=== PATIENT | female | born 1975 | race African-American/Black ===

== ENCOUNTER 2017-05-01 12:21 | Emergency (ER) | payer SELFPAY | END 2017-05-01 13:10 | disposition home or self-care (01) | LOC: EDSEX 12:21 → ERS 12:21 | DX: T19.2XXA Foreign body in vulva and vagina, initial encounter (principal); I10 Essential (primary) hypertension | CPT/HCPCS: 99283 ==

== ENCOUNTER 2017-08-06 06:11 | Emergency (ER) | payer SELFPAY ==
[2017-08-06 08:35] LABS: Bilirubin Negative (Negative); Blood, Urine Negative (Negative); Clarity CLEAR (Clear); Glucose, Urine (Dipstick) Negative (Negative); Leukocyte Negative (Negative); Nitrite Negative (Negative); Protein, Urine (Dipstick) Negative (Neg-Trace); Specific Gravity, Urine 1.022 (1.002-1.036)
[2017-08-06 08:42] LABS: Pregnancy Test - Urine (BHCG) Negative (Negative); Pregu Control Background? CLEAR/WHITE (CLR/WHITE); Pregu Control Bar Appear? YES (CONTROL BAR); Specific Gravity 1.022 (1.002-1.036)
[2017-08-07 22:59] LABS: Chlamydia by PCR Not Detected (NotDetected); GC by PCR Not Detected (NotDetected)
== END 2017-08-06 09:26 | disposition home or self-care (01) ==
LOC: ERS 06:11
DX: T19.2XXA Foreign body in vulva and vagina, initial encounter (principal); E78.5 Hyperlipidemia, unspecified; I10 Essential (primary) hypertension; Z79.899 Other long term (current) drug therapy; W45.8XXA Other foreign body or object entering through skin, initial encounter
CPT/HCPCS: 81003; 81025; 87070; 87077; 87086; 87480; 87491; 87510; 87591; 87660; 99283

== ENCOUNTER 2017-09-08 15:29 | Emergency (ER) | payer SELFPAY ==
[2017-09-08 16:09] LABS: #Basophils 0.1 thou/uL (0.0-0.2); #Eosinphils 0.2 thou/uL (0.0-0.7); #Lymphocytes 2.7 thou/uL (1.20-3.40); #Monocytes 0.6 thou/uL (0.11-0.59); %Basophils 0.7 % (0.0-1.0); %Eosinophils 2.2 % (0.0-10.0); %Lymphocytes 36.1 % (21.0-51.0); %Monocytes 7.9 % (0.0-10.0); %Neutrophils 53.2 % (42.0-75.0); Hemoglobin 12.2 g/dL (12.0-16.0); Mean Corpuscular HGB CONC 31.9 g/dL (32.0-36.0); Mean Corpuscular Hemoglobin 31.1 pg (27.0-31.0); Mean Corpuscular Volume 97.6 fl (81.0-99.0); Mean Platelet Volume 7.8 fL (7.4-10.4); Platelet Count 357 thou/uL (130-400); RBC Distribution Width 12.4 % (11.5-14.5); White Blood Cell (WBC) Count 7.5 thou/uL (4.8-10.8)
[2017-09-08] MEDS ORDERED: Azithromycin 250 MG TAB ONE (16:19)
[2017-09-08] MEDS ORDERED: cefTRIAXone\\ROCEPHIN 250 MG VIAL ONE (16:19)
[2017-09-09 21:58] LABS: Chlamydia by PCR Not Detected (NotDetected); GC by PCR Not Detected (NotDetected)
== END 2017-09-08 17:39 | disposition home or self-care (01) ==
LOC: ERS 15:29
DX: T19.2XXA Foreign body in vulva and vagina, initial encounter (principal); N72 Inflammatory disease of cervix uteri; E78.5 Hyperlipidemia, unspecified; F32.9 Major depressive disorder, single episode, unspecified; I10 Essential (primary) hypertension; Z79.899 Other long term (current) drug therapy
CPT/HCPCS: 36415; 85025; 87491; 87591; 96372; J0696

== ENCOUNTER 2017-09-23 14:20 | Emergency (ER) | payer SELFPAY ==
[2017-09-23 15:47] LABS: #Basophils 0.1 thou/uL (0.0-0.2); #Eosinphils 0.2 thou/uL (0.0-0.7); #Monocytes 0.5 thou/uL (0.11-0.59); #Neutrophils 8.2 thou/uL (1.40-6.50); %Basophils 0.7 % (0.0-1.0); %Eosinophils 1.5 % (0.0-10.0); %Lymphocytes 18.3 % (21.0-51.0); %Monocytes 4.6 % (0.0-10.0); Hemoglobin 12.3 g/dL (12.0-16.0); Mean Corpuscular Hemoglobin 31.1 pg (27.0-31.0); Mean Corpuscular Volume 97.3 fl (81.0-99.0); Platelet Count 263 thou/uL (130-400); RBC Distribution Width 12.9 % (11.5-14.5); Red Blood Cell (RBC) Count 3.95 mill/uL (4.20-5.40); White Blood Cell (WBC) Count 10.9 thou/uL (4.8-10.8)
[2017-09-23 16:12] LABS: ALT (SGPT) 8 U/L (8-55); AST (SGOT) 16 U/L (5-34); Albumin 3.8 g/dL (3.5-5.0); Alkaline Phosphatase 86 U/L (40-150); Anion Gap 12 mmol/L (10-20); BUN (Urea Nitrogen) 6 mg/dL (7.0-18.7); Bilirubin, Total 0.3 mg/dL (0.2-1.2); Calc. Creatinine Clearance 0 mL/min (70-130); Calcium 9.3 mg/dL (7.8-10.44); Carbon Dioxide 27 mmol/L (22-29); Chloride 100 mmol/L (98-107); Estimated GFR-MDRD 89; Glucose 107 mg/dL (70-105); Potassium 3.3 mmol/L (3.5-5.1); Protein, Total 7.8 g/dL (6.0-8.3); Sodium 136 mmol/L (136-145)
[2017-09-23] MEDS ORDERED: Naproxen 500 MG TAB ONE (18:02)
== END 2017-09-23 16:30 | disposition left against medical advice (07) ==
LOC: ERS 14:20
DX: Z53.21 Procedure and treatment not carried out due to patient leaving prior to being seen by health care provider (principal)
CPT/HCPCS: 36415; 80053; 83605; 85025

== ENCOUNTER 2017-09-23 17:18 | Emergency (ER) | payer SELFPAY | END 2017-09-23 18:05 | disposition home or self-care (01) | LOC: ERS 17:18 | DX: K43.9 Ventral hernia without obstruction or gangrene (principal); E78.5 Hyperlipidemia, unspecified; I10 Essential (primary) hypertension; F31.9 Bipolar disorder, unspecified; F20.0 Paranoid schizophrenia | CPT/HCPCS: 99283 ==

== ENCOUNTER 2019-04-08 14:23 | Emergency (ER) | payer SELFPAY ==
[2019-04-08 15:52] LABS: Bacteria/HPF 1+ HPF (None Seen); Bilirubin Negative (Negative); Blood, Urine Negative (Negative); Clarity Turbid (Clear); Glucose, Urine (Dipstick) Normal (Negative); Leukocyte 500 Leu/uL (Negative); Nitrite Negative (Negative); Pregnancy Test - Urine (BHCG) Negative (Negative); Protein, Urine (Dipstick) 70 mg/dL (Neg-Trace); Urobilinogen 3 mg/dL (Less than 2)
[2019-04-08 15:53] LABS: Pregu Control Background? CLEAR/WHITE (CLR/WHITE); Pregu Control Bar Appear? YES (CONTROL BAR); Specific Gravity 1.034 (1.002-1.036)
[2019-04-08 16:00] LABS: RBC/HPF 0-3 HPF (0-3)
[2019-04-08] MEDS ORDERED: Lidocaine 1% PF 5 ML VIAL ONE (16:55)
[2019-04-08] MEDS ORDERED: cefTRIAXone\\ROCEPHIN 250 MG VIAL ONE (16:55)
[2019-04-08] MEDS ORDERED: Azithromycin 250 MG TAB ONE (16:55)
[2019-04-10 00:38] LABS: Chlamydia by PCR Not Detected (NotDetected); GC by PCR Not Detected (NotDetected)
== END 2019-04-08 17:25 | disposition home or self-care (01) ==
LOC: ERS 14:23
DX: N39.0 Urinary tract infection, site not specified (principal); E78.5 Hyperlipidemia, unspecified; E78.00 Pure hypercholesterolemia, unspecified; I10 Essential (primary) hypertension; F31.9 Bipolar disorder, unspecified; F20.0 Paranoid schizophrenia; Z79.899 Other long term (current) drug therapy
CPT/HCPCS: 81003; 81015; 81025; 87480; 87491; 87510; 87591; 87660; 96372; 99283; J0696; J2001

== ENCOUNTER 2019-05-04 18:19 | Emergency (ER) | payer SELFPAY | END 2019-05-04 19:11 | disposition left against medical advice (07) | LOC: ERS 18:19 | DX: Z53.21 Procedure and treatment not carried out due to patient leaving prior to being seen by health care provider (principal) ==

== ENCOUNTER 2019-05-11 12:27 | Emergency (ER) | payer SELFPAY ==
[2019-05-11 14:18] LABS: Bilirubin Negative (Negative); Blood, Urine Negative (Negative); Clarity Clear (Clear); Glucose, Urine (Dipstick) Normal (Negative); Leukocyte Negative Leu/uL (Negative); Nitrite Negative (Negative); Protein, Urine (Dipstick) Negative (Neg-Trace); Urobilinogen Normal mg/dL (Less than 2)
[2019-05-11 14:31] LABS: Hemoglobin 13.1 g/dL (12.0-16.0); Mean Corpuscular HGB CONC 31.4 g/dL (32.0-36.0); Mean Corpuscular Hemoglobin 30.6 pg (27.0-31.0); Mean Corpuscular Volume 97.5 fL (78.0-98.0); Mean Platelet Volume 8.3 fL (7.4-10.4); Platelet Count 286 thou/uL (130-400); RBC Distribution Width 14.5 % (11.5-14.5); Red Blood Cell (RBC) Count 4.27 mill/uL (4.20-5.40); White Blood Cell (WBC) Count 14.4 thou/uL (4.8-10.8)
[2019-05-11 14:46] LABS: BHCG - Serum Negative (NEGATIVE); Pregs Control Background? CLEAR/WHITE (CLR/WHITE); Pregs Control Bar Appear? YES (CONTROL BAR)
[2019-05-11] MEDS ORDERED: Iopamidol 370 76% 100 ML VIAL ONE (14:49)
[2019-05-11 14:54] LABS: Band 12 % (5-11); Hypochromia SLIGHT = 6-15 cells (100X) (0-5/hpf); Lymphocytes 6 % (21-51); MDiff Complete? YES; Monocytes 1 % (0-10); Neutrophil 77 % (42-75); Platelet Morphology Comment Appears Adequate; Polychromasia SLIGHT = 2-3 cells (100X) (0-2/hpf); Reactive Lymphocytes 4 % (0-10)
[2019-05-11 14:55] LABS: ALT (SGPT) 16 U/L (8-55); AST (SGOT) 27 U/L (5-34); Albumin 3.7 g/dL (3.5-5.0); Alkaline Phosphatase 81 U/L (40-110); Anion Gap 9 mmol/L (10-20); BUN (Urea Nitrogen) 12 mg/dL (7.0-18.7); Bilirubin, Total 0.3 mg/dL (0.2-1.2); Calc. Creatinine Clearance 0 mL/min (70-130); Calcium 9.1 mg/dL (7.8-10.44); Carbon Dioxide 31 mmol/L (22-29); Chloride 103 mmol/L (98-107); Estimated GFR-MDRD 81; Globulin 3.6 g/dL (2.4-3.5); Glucose 94 mg/dL (70-105); Lipase 59 U/L (8-78); Potassium 3.3 mmol/L (3.5-5.1); Protein, Total 7.3 g/dL (6.0-8.3); Sodium 140 mmol/L (136-145)
--- NOTE | 2019-05-11 16:00 | CT ---
CT ABDOMEN AND PELVIS WITH IV CONTRAST 05/11/2019 CLINICAL INFORMATION: Abdominal pain. COMPARISON: None. Technique: Multiple contiguous axial CT images are obtained through the abdomen and pelvis with IV contrast. Cor onal reformatted images are provided. FINDINGS: Lower Chest: There is minimal atelectasis present at each lung base. Vessels: Abdominal aorta is normal in caliber without evidence of an aortic dissection. Abdomen: Portal vein:Patent Gallbladder: Decompressed. Liver: Few tiny subcentimeter too small to characterize hypodense lesions are seen in the right hepat ic lobe. Liver otherwise demonstrates a normal CT appearance. Spleen: within normal limits. Pancreas: within normal limits. Adrenals: within normal limits. Kidneys: within normal limits. Bowel: Small amount of fluid and retained fecal material seen throughout the colon. Portion of the tr ansverse colon extends into a right paraumbilical hernia without evidence of a bowel obstruction. Hernia defect measures approximately 2.5 cm. Loops of small bowel are normal in caliber. Appendix: The appendix is visualized and normal in caliber. Peritoneum: No ascites or free air; no fluid collection. Mesentery and Retroperitoneum: No enlarged mesenteric or retroperitoneal lymph nodes. Abdominal Wall: Right paraumbilical hernia as described above Pelvis: Reproductive Organs: A 2.3 cm hypodense cystic structure is seen in the cervix which may represent a large nabothian cyst. There is diminished attenuation in the endometrial canal which may be related to the stage of the patient's menstrual cycle. There are several subcentimeter hypodense lesions in t he right adnexa with a larger 4.7 cm hypodense cystic structure in the right adnexal region which does demonstrate fluid attenuation probably representing a right ovarian cyst with adjacent right ova aquilino follicles. Pelvis within normal limits. Bladder: within normal limits. Bones: Degenerative changes in the thoracic and lumbar spine. There is trace retrolisthesis of L5 on S1. IMPRESSION: 1. Right paraumbilical hernia containing a loop of the transverse colon, but there is no evidence of a bowel obstruction. There is fluid and small amount of retained fecal material seen throughout the colon. 2. Tiny subcentimeter too small to characterize hypodense lesions right hepatic lobe. 3. Probable right ovarian cyst measuring 4.7 cm. 4. Cystic lesion in the cervix probably nabothian cyst. Diminished attenuation is seen in the endomet rial canal likely related to stage of the patient's menstrual cycle.
== END 2019-05-11 17:25 | disposition home or self-care (01) ==
LOC: ERS 12:27
DX: R10.9 Unspecified abdominal pain (principal); E78.5 Hyperlipidemia, unspecified; E78.00 Pure hypercholesterolemia, unspecified; I10 Essential (primary) hypertension; F32.9 Major depressive disorder, single episode, unspecified; Z79.899 Other long term (current) drug therapy
CPT/HCPCS: 36415; 74177; 80053; 81003; 83690; 84703; 85025; 96360; Q9967

== ENCOUNTER 2019-06-21 15:23 | Inpatient (IN) | payer SELFPAY ==
[~2019-06-21 15:23] MED LIST: Iopamidol 370 76% 100 ML VIAL ONE
[2019-06-21] MEDS ORDERED: Pantoprazole 40 MG VIAL ONE (15:27)
[2019-06-21] MEDS ORDERED: Ondansetron PF 4 MG/2 ML Vial ONE (15:27)
[2019-06-21 16:04] LABS: #Eosinphils 0.1 thou/uL (0.0-0.7); #Lymphocytes 2.4 thou/uL (1.20-3.40); #Monocytes 0.5 thou/uL (0.11-0.59); #Neutrophils 8.9 thou/uL (1.40-6.50); %Basophils 0.1 % (0.0-1.0); %Eosinophils 0.5 % (0.0-10.0); %Lymphocytes 20.2 % (21.0-51.0); %Monocytes 3.8 % (0.0-10.0); %Neutrophils 75.3 % (42.0-75.0); Hemoglobin 7.8 g/dL (12.0-16.0); Mean Corpuscular Hemoglobin 33.1 pg (27.0-31.0); Mean Platelet Volume 8.5 fL (7.4-10.4); Platelet Count 227 thou/uL (130-400); RBC Distribution Width 12.5 % (11.5-14.5); Red Blood Cell (RBC) Count 2.34 mill/uL (4.20-5.40); White Blood Cell (WBC) Count 11.9 thou/uL (4.8-10.8)
[2019-06-21 16:15] LABS: BHCG - Serum Negative (NEGATIVE); Pregs Control Background? CLEAR/WHITE (CLR/WHITE); Pregs Control Bar Appear? YES (CONTROL BAR)
[2019-06-21 16:16] LABS: PTT 23.1 SEC (22.9-36.1); Prothrombin Time 12.7 SEC (12.0-14.7)
[2019-06-21 16:25] LABS: ALT (SGPT) 11 U/L (8-55); AST (SGOT) 16 U/L (5-34); Albumin 2.6 g/dL (3.5-5.0); Alkaline Phosphatase 47 U/L (40-110); Anion Gap 9 mmol/L (10-20); BUN (Urea Nitrogen) 46 mg/dL (7.0-18.7); Bilirubin, Total 0.3 mg/dL (0.2-1.2); Calc. Creatinine Clearance 0 mL/min (70-130); Calcium 7.7 mg/dL (7.8-10.44); Carbon Dioxide 26 mmol/L (22-29); Chloride 106 mmol/L (98-107); Estimated GFR-MDRD 67; Globulin 2.1 g/dL (2.4-3.5); Glucose 164 mg/dL (70-105); Potassium 3.2 mmol/L (3.5-5.1); Protein, Total 4.7 g/dL (6.0-8.3); Sodium 138 mmol/L (136-145)
--- NOTE | 2019-06-21 16:45 | ULT ---
RIGHT LOWER EXTREMITY DOPPLER VENOUS ULTRASOUND PROVIDED CLINICAL HISTORY: Right lower extremity edema TECHNIQUE: Grayscale and color Doppler sonography with spectral analysis was performed of the right common femor al, femoral, popliteal, posterior tibial, greater saphenous and profunda femoral veins. FINDINGS: There is normal compression, flow and augmentation seen within the deep venous structures o f the right lower extremity. IMPRESSION: No sonographic evidence for right lower extremity deep venous thrombosis.
--- NOTE | 2019-06-21 18:02 | CT ---
CT HEAD WITHOUT CONTRAST: Indications: Seizure. Comparison: None. FINDINGS: Ventricles have normal size and position. There is no evidence of intracranial mass or hemorrhage. No evidence of acute infarct. Sinuses and mastoids appear clear. IMPRESSION: No acute abnormality. POS: [facility]
--- NOTE | 2019-06-21 18:09 | CT ---
CT ABDOMEN AND PELVIS WITH IV CONTRAST: Indications: Abdominal pain, vomiting blood. Comparison: 05-11-2019 FINDINGS: Lung bases clear. Liver, spleen, and pancreas unremarkable. The tiny hepatic cyst described previously is again seen. Stomach and duodenum unremarkable. Small bowel loops normal caliber. There is an interior abdominal wall hernia to the right of the umbilicus. Transverse colon herniates through this defect into the indwelling hernia sac within the subcutaneous tissues as described previ ously. There is no evidence of bowel obstruction. Scattered stool and gas seen throughout the colon. Appendix appears normal. Aorta normal caliber. No adenopathy. Images through the pelvis again shows a right adnexal cyst, similar to the prior exam. This is consis tent with a right ovarian cyst which measures approximately 4 cm. The uterus otherwise unremarkable and stable. A Nabothian cyst described previously in the cervix is no longer apparent. The adrenal glands, kidneys and urinary tract appear unremarkable. IMPRESSION: 1. Anterior abdominal wall hernia again noted with the transverse colon herniated through the abdomin al wall defect into a hernia sac within subcutaneous tissues which measures approximately 8 c width. No evidence of bowel obstruction and no significant change from the recent CT. 2. Right ovarian cyst is again noted. 3. Otherwise no acute intraabdominal process or interval change from the recent exam. POS: [facility]
[2019-06-21] MEDS ORDERED: Fosphenytoin Sodium 1,500 MG in Sodium Chloride 0.9% 50 ML IVPB SCH (18:15)
[2019-06-21 18:17] LABS: Bacteria/HPF None Seen HPF (None Seen); Bilirubin Negative (Negative); Blood, Urine 2+ (Negative); Clarity Clear (Clear); Glucose, Urine (Dipstick) Normal (Negative); Leukocyte Negative Leu/uL (Negative); Nitrite Negative (Negative); Protein, Urine (Dipstick) Negative (Neg-Trace); RBC/HPF 0-3 HPF (0-3); Urobilinogen Normal mg/dL (Less than 2); WBC/HPF 0-3 HPF (0-3)
[2019-06-21 18:28] LABS: Amphetamine Not Detected (NotDetected); Barbiturates Screen Not Detected (NotDetected); Benzodiazepine Screen Not Detected (NotDetected); Cocaine Metabolite Screen Detected (NotDetected); Medtox Control Line Valid? VALID (VALID); Medtox Reader # READER 4; Methadone Not Detected (NotDetected); Methamphetamine Not Detected (NotDetected); Opiate Screen Not Detected (NotDetected); Oxycodone Screen Not Detected (NotDetected); Phencyclidine (PCP) Not Detected (NotDetected); THC/Cannabinoid Screen Not Detected (NotDetected); Tricyclic Screen Not Detected (NotDetected)
[2019-06-21] MEDS ORDERED: Pantoprazole 80 MG in Sodium Chloride 0.9% 100 ML IVP SCH (18:45)
[2019-06-21] MEDS ORDERED: Acetaminophen 325 MG TAB PO PRN ×2 (19:00→20:18)
[2019-06-21] MEDS ORDERED: Ondansetron ODT 4 MG TAB SL PRN (19:00)
[2019-06-21] MEDS ORDERED: Ondansetron PF 4 MG/2 ML Vial IVP PRN ×2 (19:00→20:18)
[2019-06-21] MEDS ORDERED: Dextrose 5% in Water 1,000 ML IV PRN (20:18)
[2019-06-21] MEDS ORDERED: Dextrose 50% Abboject 50 ML SYRINGE SLOW IVP PRN (20:18)
[2019-06-21] MEDS ORDERED: Guaifenesin DM 100-10/5 ML UDCUP PO PRN (20:18)
[2019-06-21] MEDS ORDERED: Sodium Chloride 0.9% 1,000 ML IV SCH (20:18)
[2019-06-21] MEDS ORDERED: HumaLOG 300 UNITS/3 ML VIAL SC PRN (20:18)
[2019-06-21 20:55] LABS: Hemoglobin 8.7 g/dL (12.0-16.0)
[2019-06-21 21:02] LABS: Hemoglobin A1c 4.9 % (4.0-6.0)
--- NOTE | 2019-06-21 21:05 | HP ---
REASON FOR ADMISSION: Acute blood loss anemia. Seizure x1 episode, likely cocaine intoxication, hematemesis. Fever of 99 with nausea, vomiting, and diarrhea, likely food poisoning. HISTORY OF PRESENTING ILLNESS: The patient gives history of feeling sick from last 2 days. She states she vomited yesterday at least 2 to 3 times and again this morning, she had one episode of watery diarrhea. Yesterday in fact she was incontinent x1. She passed again 2 more loose stools this morning. The patient says she and a friend of hers, Ms. Nguyễn also ate the same pickled pork and both of them were sick with nausea, vomiting, and diarrhea per patient. She has taken a flu shot for this year. Has no complaints of chest pain or palpitation. She had one episode of vomiting blood around 20 mL or so when EMS arrived. She does not recall having black stools. No complaints of cough or expectoration. She has chills at present. No complaints of urinary frequency or urgency. PAST MEDICAL AND SURGICAL HISTORY: Dyslipidemia, hypertension, x2, history of depression; schizophrenia, not on any medication. CURRENT MEDICATIONS: 1. Hydrochlorothiazide 12.5 mg daily. 2. Norvasc 5 mg daily. 3. Aspirin 81 mg daily. ALLERGIES: NO KNOWN DRUG ALLERGIES. PERSONAL HISTORY: Does not smoke or abuse alcohol. She denies substance use. FAMILY HISTORY: Father is legally blind, but is living. He also has history of hypertension and diabetes. Mother is in [facility]; she has history of coronary artery disease, diabetes, and hypertension. REVIEW OF SYSTEMS: CONSTITUTIONAL: Negative for weight loss or gain, ability to conduct usual activities. SKIN: Negative for rash, itching. EYES: Negative for double vision, pain. ENT/MOUTH: Negative for nose bleeding, neck stiffness, pain, tenderness. CARDIOVASCULAR: Negative for palpitations, dyspnea on exertion, orthopnea. RESPIRATORY: Negative for shortness of breath, wheezing, cough, hemoptysis, fever or night sweats. GASTROINTESTINAL: Negative for poor appetite, abdominal pain, heartburn, nausea , vomiting, constipation, or diarrhea. GENITOURINARY: Negative for urgency, frequency, dysuria, nocturia. MUSCULOSKELETAL: Negative for pain, swelling. NEUROLOGIC/PSYCHIATRIC: Negative for anxiety, depression. ALLERGY/IMMUNOLOGIC: Negative for skin rash, bleeding tendency. Otherwise, negative except as stated per HPI. CODE STATUS: Full. Power of employment law attorney is her father. PHYSICAL EXAMINATION: GENERAL: The patient is a 44-year-old female who is currently in mild distress from chills. VITAL SIGNS: Blood pressure 103/66, pulse 106 per minute, respiratory rate 20 per minute, temperature 99.1 degrees Fahrenheit, saturating 100% on room air. NECK: Supple. No elevated JVD. HEENT: Eyes; extraocular muscles intact. Pupils reacting to light. Oral cavity, mucous membranes are dry. No exudates or congestion. CARDIOVASCULAR: S1 and S2 heard, regular rhythm. RESPIRATORY: Air entry 1+ bilateral. No rales or rhonchi. ABDOMEN: Soft. Bowel sounds heard. Has a paraumbilical hernia. No rigidity or guarding. EXTREMITIES: No peripheral edema or calf tenderness. VASCULAR: Peripheral pulses 1+ bilateral. No ischemic ulcerations or gangrene. CENTRAL NERVOUS SYSTEM: No gross focal deficits noted. The patient is alert, awake, and oriented well now. PSYCHIATRIC: The patient's mood is euthymic. No obvious hallucinations or delusions. LABORATORY DATA: CT of the abdomen and pelvis with IV contrast done shows anterior abdominal wall hernia with transverse colon herniated through the defect into a hernia within subcutaneous tissues which measures 8 cm width. No bowel obstruction seen. Right ovarian cyst is seen. CT brain without contrast done showed no acute intracranial abnormality. Right lower extremity venous Doppler done showed no evidence of DVT. Urine drug screen is positive for cocaine metabolites. Serum test is negative. Prolactin is 64. Albumin 2.6. Lipase is 44. BUN 46, creatinine 1.0, serum bicarb 26, serum glucose 164, lactic acid 1.9. Liver enzymes within normal limits. Albumin is 2.6. PT/INR, PTT within normal limits. Serum potassium is 3.2. White count of 11, H and H 7.8 and 23, platelet count 227 with 75% neutrophils, MCV is 100. EKG done shows sinus tach at 103 beats per minute. There are signs of LVH seen. CLINICAL IMPRESSION AND PLAN: The patient will be admitted to Stroke Unit for acute blood loss anemia. The patient had H and H of 13 and 41 in the month of May. Likely the patient has had gastrointestinal bleed. Urine drug screen is also positive for cocaine. She had one episode of seizure, it is unclear the exact variety of seizures she had. Likely this is from substance use and component of metabolic issues. She also might have had a food poisoning with a friend suffering from similar issue after eating pickled pork. Dr. Vergara has been consulted for Gastroenterology from ER. She has been kept n.p.o. She is on Protonix drip. She will be on normal saline at 100 mL per hour. We will continue her on Norvasc as before. The patient has received a dose of fosphenytoin in the ER. She has no prior history of seizure. This episode of seizure likely is due to metabolic causes and we will hold off on any antiepileptic. We will consult Neurology, Dr. Louis who is concert promoter. H and H q.6 hourly x4. We will also obtain a metabolic panel in the morning. 2 units of packed cell has been ordered by Dr. Cheung, ER physician. We will follow up on her lab work. Job ID: [id number] [id number]
[2019-06-21 21:14] LABS: Iron 250 ug/dL (50-170); Iron Binding Capacity, Total 264 mcg/dL (265-497)
[2019-06-21 21:41] LABS: Ferritin 17.49 ng/mL (10-291)
[2019-06-21 22:53] VITALS: BMI 42.0
--- NOTE | 2019-06-22 00:38 | CON ---
DATE OF CONSULTATION: 06/21/2019 REASON FOR CONSULTATION: Hematemesis, melena. CONSULTING PROVIDER: Tre Cheung DO HISTORY OF PRESENT ILLNESS: The patient is a 44-year-old female with past medical history of hypertension, hyperlipidemia, and GERD, presenting with complaints of hematemesis and darker-colored stools. She states that she was in her usual state of health until yesterday evening. When after dinner, she experienced increased diaphoresis, dyspepsia, nausea, and vomiting. This was also associated with increased periumbilical abdominal pain characterized as a cramping/sharp type sensation, was nonradiating, intermittent, occurring for 30 to 60 minutes at a time and reaching a severity of 7/10 to 8/10. The pain was worse with increased physical activity only and better with vomiting for a while but that would soon return after approximately 30 to 60 minutes. With the onset of this pain, she also had multiple episodes of nausea and vomiting with vomiting of dark black material x2. However, with being evaluated by [facility] earlier today, she did actually have gross hematemesis of bright red blood. During the same time within the last 12 hours, she also endorses increased diarrhea, having approximately 3 to 4 liquid black bowel movements during that time. Upon further questioning the patient, she does endorse increased dizziness, diarrhea/melena, nausea, vomiting, subjective fevers, and chills. Currently, she denies any dysphagia, odynophagia, weight loss, cirrhosis, or prior episodes of GI bleeding. Of note, the patient has been taking aspirin 325 mg daily for the last 1 to 2 weeks because she was told "it would be good for my heart." She was on PPIs for her acid reflux, but has not been taking this medication for many months. REVIEW OF SYSTEMS: A 10-category review of systems was obtained with all responses negative except for the pertinent positives as listed in HPI. PAST MEDICAL HISTORY: As per HPI. PAST SURGICAL HISTORY: section x2. FAMILY HISTORY: Denies any GI malignancies. SOCIAL HISTORY: Denies any tobacco or illicit drug use. Drinks approximately 1 to 2 drinks every 1 to 2 months. OUTPATIENT MEDICATIONS: 1. Hydrochlorothiazide. 2. Enalapril. 3. Amlodipine. 4. Aspirin 325 mg daily. ALLERGIES: NO KNOWN DRUG ALLERGIES. PHYSICAL EXAMINATION: VITAL SIGNS: Heart rate 89, blood pressure 115/80, respiratory rate 22, and saturating 98% on room air. GENERAL: The patient is lying in bed, in no acute distress. Alert and oriented x4. HEENT: Normocephalic, atraumatic. NECK: Supple. No JVD or scleral icterus noted. CARDIOVASCULAR: Regular rate and rhythm with no discernible murmurs, gallops, or rubs. RESPIRATORY: Clear to auscultation bilaterally with no discernible wheezes or rales. ABDOMEN: Normoactive bowel sounds. Soft, nondistended. Tenderness to palpation in the midepigastric and periumbilical regions. EXTREMITIES: Trace bilateral lower extremity edema extending to mid mittal. LABORATORY DATA: CBC with a white blood cell count of 11.9, hemoglobin 7.8, hematocrit 23.5, and platelets 227. INR 1.0. Chemistry with a sodium of 138, potassium 3.2, chloride 106, CO2 of 26, BUN 46, creatinine 1.07, glucose 164, AST 16, ALT 11, alkaline phosphatase 47, total bilirubin 0.3, albumin 2.6, and lipase 44. test negative. IMAGING DATA: CT of the abdomen and pelvis was obtained on June 21, 2019, which showed an anterior abdominal wall hernia, again noted with a transverse colon herniated through the abdominal wall defect into hernia sac, measuring approximately 8 cm width; however, there was no evidence of bowel obstruction and no significant change from the recent CT on May 11, 2019. A right ovarian cyst was also seen, measuring approximately 4 cm in size, but similar when compared to prior examination. ASSESSMENT: The patient is a 44-year-old female with past medical history of hypertension, hyperlipidemia, and gastroesophageal reflux disease, presenting with a probable upper gastrointestinal bleed. Upper gastrointestinal bleeding: The patient is presenting with acute onset of diaphoresis, midepigastric/periumbilical abdominal pain, hematemesis (characterized as dark-colored material and one episode of bright red hematemesis) and melenic type tools in addition to an elevated BUN to creatinine ratio consistent with an upper gastrointestinal bleed. At this time, the more likely etiology would be the increased use of nonsteroidal anti-inflammatory drugs over the last 1 to 2 weeks, but differential could also include erosive esophagitis, gastritis, duodenitis, peptic ulcer disease, arteriovenous malformation, Dieulafoy lesion and/or gastrointestinal neoplasm (less likely). RECOMMENDATIONS: 1. We transfer the patient to at least an intermediate care bed for further monitoring and resuscitation. 2. We would continue to trend her H and H and transfuse as necessary to maintain an H and H of 7/. 3. Continue to monitor clinically for signs of active GI bleeding. 4. We would start the patient on PPI drip in light of probable upper GI bleed. 5. We would avoid any NSAIDs during this hospitalization. 6. We will plan for EGD once resuscitation has been completed. 7. We would keep the patient n.p.o. for now in light of possible emergent need for upper endoscopy. 8. We would avoid any anticoagulation in light of possible active GI bleed. Job ID: [id number]
[2019-06-22 02:32] LABS: Hemoglobin 8.3 g/dL (12.0-16.0)
[2019-06-22 03:03] LABS: Anion Gap 11 mmol/L (10-20); BUN (Urea Nitrogen) 33 mg/dL (7.0-18.7); Calc. Creatinine Clearance 168 mL/min (70-130); Calcium 7.6 mg/dL (7.8-10.44); Carbon Dioxide 25 mmol/L (22-29); Chloride 109 mmol/L (98-107); Estimated GFR-MDRD Greater than 90; Glucose 95 mg/dL (70-105); Potassium 3.5 mmol/L (3.5-5.1); Sodium 141 mmol/L (136-145)
--- NOTE | 2019-06-22 07:33 | RAD ---
Chest one view HISTORY: Dyspnea. Chest pain. FINDINGS: No comparison. Cardiac silhouette is magnified by projection. Pulmonary vasculature is unre markable. Mediastinum is midline. No lobar consolidation or evidence of pneumothorax. Dystrophic calcification over the right rotator cuff. inside sales engineer leads overlie the chest. IMPRESSION: No active cardiopulmonary abnormalities are demonstrated.
[2019-06-22] MEDS: Amlodipine 10 MG TAB PO SCH (09:15)
[2019-06-22] MEDS ORDERED: EPINEPHrine 1 MG/10 ML Abboject SYRINGE ONE (09:56)
[2019-06-22] MEDS ORDERED: PROPOFOL 200 MG/20 ML VIAL ONE (09:56)
[2019-06-22] MEDS: Pantoprazole 80 MG, Admixture Fee 1 EACH in Sodium Chloride 0.9% 100 ML IVP SCH (10:05)
--- NOTE | 2019-06-22 11:46 | PDOC.HOSPP ---
- Subjective Encounter Date: 06/22/19 Encounter Time: 09:45 Subjective: awake, no nausea or abd pain says she slept well, no sob - Objective Vital Signs & Weight: Vital Signs (12 hours) Temp Pulse Pulse Pulse Resp BP BP 06/22/19 09:15 98 06/22/19 08:35 95 95 131/59 L 109/65 06/22/19 07:39 98.1 F 98 20 06/22/19 03:00 98.6 F 111 H 16 06/21/19 23:54 98.9 F 92 19 BP Pulse Ox 06/22/19 09:15 06/22/19 08:35 06/22/19 07:39 106/59 L 100 06/22/19 03:00 137/61 97 06/21/19 23:54 124/76 97 Weight Weight 260 lb 9.6 oz Result Diagrams: 06/22/19 07:31 06/22/19 02:17 Hospitalist ROS - Medication Medications: Active Medications Generic Name Dose Route Start Last Admin Trade Name Ange PRN Reason Stop Dose Admin Amlodipine Besylate 10 mg 06/22/19 09:00 06/22/19 09:15 Norvasc PO Not Given DAILY IGGY Pantoprazole Sodium 80 mg/ 100 mls @ 10 mls/hr 06/21/19 19:00 06/22/19 10:05 Miscellaneous Medication 1 IVP 100 mls each/ Sodium Chloride INF IGGY Administration - Exam General Appearance: awake alert Eye: PERRL, anicteric sclera ENT: no oropharyngeal lesions, moist mucosa Neck: supple, no JVD Heart: RRR, no murmur Respiratory: no wheezes, no rales Gastrointestinal: soft, non-tender, non-distended, normal bowel sounds Extremities: no cyanosis, no edema Neurological: cranial nerve grossly intact, no focal deficits Psychiatric: A&O x 3 Hosp A/P (1) Acute blood loss anemia Code(s): D62 - ACUTE POSTHEMORRHAGIC ANEMIA Status: Acute (2) GI bleed Code(s): K92.2 - GASTROINTESTINAL HEMORRHAGE, UNSPECIFIED Status: Acute Qualifiers: GI bleed type/associated pathology: unspecified gastrointestinal hemorrhage type Qualified Code(s): K92.2 - Gastrointestinal hemorrhage, unspecified (3) Seizure Code(s): R56.9 - UNSPECIFIED CONVULSIONS Status: Resolved (4) Substance use disorder Code(s): F19.90 - OTHER PSYCHOACTIVE SUBSTANCE USE, UNSPECIFIED, UNCOMPLICATED Status: Chronic (5) HTN (hypertension) Code(s): I10 - ESSENTIAL (PRIMARY) HYPERTENSION Status: Chronic Qualifiers: Hypertension type: essential hypertension Qualified Code(s): I10 - Essential (primary) hypertension (6) Metabolic encephalopathy Code(s): G93.41 - METABOLIC ENCEPHALOPATHY Status: Resolved (7) ROXANA (acute kidney injury) Code(s): N17.9 - ACUTE KIDNEY FAILURE, UNSPECIFIED Status: Resolved (8) Obesity Code(s): E66.9 - OBESITY, UNSPECIFIED Status: Chronic Qualifiers: Obesity classification: adult class 3 (BMI >= 40) Body mass index: BMI 40.0 -44.9 (9) Schizoaffective disorder Code(s): F25.9 - SCHIZOAFFECTIVE DISORDER, UNSPECIFIED Status: Chronic (10) Ventral hernia Code(s): K43.9 - VENTRAL HERNIA WITHOUT OBSTRUCTION OR GANGRENE Status: Chronic Qualifiers: Obstruction and gangrene presence: without obstruction or gangrene Qualified Code(s): K43.9 - Ventral hernia without obstruction or gangrene - Plan is going for EGD today had normal H/H previously no further episode of seizure, likely due to cocaine use?/metabolic issue, no antiepileptic therapy for now contnue protonix per GI advice oral iron after GI w/u she needs repair of ventral hernia as outpt once she loses some weight, needs referal to surgery via pcp outpt [facility] appt to see if she needs to be on meds for schizoaffective disorder, no current hallucinations or delusions. No diarrhea now
[2019-06-22] MEDS ORDERED: Ondansetron PF 4 MG/2 ML Vial ONE (13:40)
--- NOTE | 2019-06-22 13:49 | OP ---
DATE OF PROCEDURE: 06/22/2019 PROCEDURE PERFORMED: Esophagogastroduodenoscopy with control of hemorrhage. PREOPERATIVE DIAGNOSIS: Gastrointestinal bleed and anemia of acute blood loss. DESCRIPTION OF PROCEDURE: Informed consent was obtained from the patient. She was sedated with total intravenous anesthesia. The endoscope was advanced easily to the second portion of the duodenum, and retroflexion was performed in the stomach. The esophagus was normal. The GE junction was normal. The stomach had fresh red clot in the fundus. This was removed through her mouth with a Drummond Net with multiple passes. Ultimately, the stomach was exposed enough, and a 1.3 cm ulcer along the proximal lesser curvature of the body of the stomach was identified. This had a protruding visible vessel in the base and adherent clot. The clot was mobilized, and the ulcer was injected in 4 quadrants with 1 mL of epinephrine per injection. The vessel was cauterized with a 10-Niuean gold probe. Good hemostasis was confirmed. The ulcer was closed with 3 hemoclips. There was a second clean white based 1.2 cm ulcer a few centimeters away. The remainder of the gastric mucosa was unremarkable; however, that was stained with fresh red blood. The pylorus and first and second portions of the duodenum were normal except for blood staining. IMPRESSION: 1. 1.3 cm ulcer in the proximal lesser curvature of the body of the stomach. The ulcer had a protruding vessel and adherent clot. The ulcer was injected with 4 mL of epinephrine 1:10,000. The vessel was cauterized with a 10-Niuean gold probe. Three hemoclips were placed as well. 2. A second 1.2 cm clean white based ulcer was also nearby lateral to this ulcer. 3. Otherwise, normal esophagogastroduodenoscopy. RECOMMENDATIONS: 1. Proton-pump inhibitor IV drip to continue. 2. Check stool H. pylori antigen. 3. Avoid NSAIDs. 4. Stop cocaine. Job ID: [id number]
[2019-06-23 05:36] LABS: Anion Gap 9 mmol/L (10-20); BUN (Urea Nitrogen) 10 mg/dL (7.0-18.7); Calc. Creatinine Clearance 180 mL/min (70-130); Calcium 7.9 mg/dL (7.8-10.44); Carbon Dioxide 25 mmol/L (22-29); Chloride 108 mmol/L (98-107); Estimated GFR-MDRD Greater than 90; Glucose 93 mg/dL (70-105); Potassium 3.6 mmol/L (3.5-5.1); Sodium 138 mmol/L (136-145)
[2019-06-23 05:49] LABS: #Eosinphils 0.2 thou/uL (0.0-0.7); #Lymphocytes 3.2 thou/uL (1.20-3.40); #Monocytes 0.7 thou/uL (0.11-0.59); #Neutrophils 11.8 thou/uL (1.40-6.50); %Basophils 0.1 % (0.0-1.0); %Eosinophils 1.5 % (0.0-10.0); %Lymphocytes 20.2 % (21.0-51.0); %Monocytes 4.5 % (0.0-10.0); %Neutrophils 73.6 % (42.0-75.0); Hemoglobin 6.6 g/dL (12.0-16.0); Mean Corpuscular Hemoglobin 33.5 pg (27.0-31.0); Mean Corpuscular Volume 98.3 fL (78.0-98.0); Mean Platelet Volume 8.3 fL (7.4-10.4); Platelet Count 196 thou/uL (130-400); Platelet Morphology Comment Appears Adequate; RBC Distribution Width 12.9 % (11.5-14.5); Red Blood Cell (RBC) Count 1.97 mill/uL (4.20-5.40)
[2019-06-23] MEDS: Pantoprazole 80 MG, Admixture Fee 1 EACH in Sodium Chloride 0.9% 100 ML IVP SCH ×2 (07:17→17:34)
[2019-06-23] MEDS: Amlodipine 10 MG TAB PO SCH (08:22)
--- NOTE | 2019-06-23 13:19 | PDOC.HOSPP ---
- Subjective Encounter Date: 06/23/19 Encounter Time: 12:40 Subjective: no billy bleeding or vomiting blood. no sob is recieving a unit of prbc now - Objective Vital Signs & Weight: Vital Signs (12 hours) Temp Pulse Pulse Pulse Pulse Resp BP 06/23/19 12:45 98.5 F 87 20 06/23/19 11:48 85 95 125/63 06/23/19 09:49 98.4 F 90 22 H 06/23/19 09:34 98.3 F 90 20 06/23/19 08:12 06/23/19 07:23 97.7 F 100 20 06/23/19 04:53 98.8 F 06/23/19 04:42 98.8 F 100 20 BP BP BP Pulse Ox 06/23/19 12:45 122/60 98 06/23/19 11:48 121/63 06/23/19 09:49 129/64 98 06/23/19 09:34 128/69 99 06/23/19 08:12 97 06/23/19 07:23 127/60 97 06/23/19 04:53 06/23/19 04:42 122/58 L 99 Weight Weight 260 lb 9.6 oz I&O: 06/22/19 06/23/19 06/24/19 06:59 06:59 06:59 Intake Total 350 Balance 350 Result Diagrams: 06/23/19 04:41 06/23/19 04:41 Additional Labs: Accuchecks 06/23/19 06/23/19 06/22/19 12:01 06:06 23:51 POC Glucose 108 109 109 06/22/19 14:34 POC Glucose 95 Hospitalist ROS - Medication Medications: Active Medications Generic Name Dose Route Start Last Admin Trade Name Freq PRN Reason Stop Dose Admin Amlodipine Besylate 10 mg 06/22/19 09:00 06/23/19 08:22 Norvasc PO 10 mg DAILY IGGY Administration Pantoprazole Sodium 80 mg/ 100 mls @ 10 mls/hr 06/21/19 19:00 06/23/19 07:17 Miscellaneous Medication 1 IVP 100 mls each/ Sodium Chloride INF IGGY Administration Sodium Chloride 10 ml 06/23/19 09:00 06/23/19 08:22 Flush - Normal Saline IVF 10 ml Q12HR IGGY Administration - Exam General Appearance: awake alert Eye: PERRL, anicteric sclera ENT: no oropharyngeal lesions, moist mucosa Neck: supple, no JVD Heart: RRR, no murmur Respiratory: no wheezes, no rales Gastrointestinal: soft, non-tender, non-distended, normal bowel sounds Extremities: no cyanosis, no edema Neurological: cranial nerve grossly intact, no focal deficits Psychiatric: A&O x 3 Hosp A/P (1) Acute blood loss anemia Code(s): D62 - ACUTE POSTHEMORRHAGIC ANEMIA Status: Acute (2) GI bleed Code(s): K92.2 - GASTROINTESTINAL HEMORRHAGE, UNSPECIFIED Status: Acute Qualifiers: GI bleed type/associated pathology: gastric ulcer Qualified Code(s): K25.4 - Chronic or unspecified gastric ulcer with hemorrhage (3) Seizure Code(s): R56.9 - UNSPECIFIED CONVULSIONS Status: Resolved (4) Substance use disorder Code(s): F19.90 - OTHER PSYCHOACTIVE SUBSTANCE USE, UNSPECIFIED, UNCOMPLICATED Status: Chronic (5) HTN (hypertension) Code(s): I10 - ESSENTIAL (PRIMARY) HYPERTENSION Status: Chronic Qualifiers: Hypertension type: essential hypertension Qualified Code(s): I10 - Essential (primary) hypertension (6) Metabolic encephalopathy Code(s): G93.41 - METABOLIC ENCEPHALOPATHY Status: Resolved (7) ROXANA (acute kidney injury) Code(s): N17.9 - ACUTE KIDNEY FAILURE, UNSPECIFIED Status: Resolved (8) Obesity Code(s): E66.9 - OBESITY, UNSPECIFIED Status: Chronic Qualifiers: Obesity classification: adult class 3 (BMI >= 40) Body mass index: BMI 40.0 -44.9 (9) Schizoaffective disorder Code(s): F25.9 - SCHIZOAFFECTIVE DISORDER, UNSPECIFIED Status: Chronic (10) Ventral hernia Code(s): K43.9 - VENTRAL HERNIA WITHOUT OBSTRUCTION OR GANGRENE Status: Chronic Qualifiers: Obstruction and gangrene presence: without obstruction or gangrene Qualified Code(s): K43.9 - Ventral hernia without obstruction or gangrene - Plan EGD showed 2 ulcers one with visible vessel in lesser curvature of stomach. Had drop in Hemoglobin this am, is getting her 2 u or prbc this admission. had normal H/H prior to this hospitalization. no further episode of seizure, likely due to cocaine use?/metabolic issue, no antiepileptic therapy for now contnue protonix per GI advice oral iron from am she needs repair of ventral hernia as outpt once she loses some weight, needs referal to surgery via pcp outpt [facility] appt to see if she needs to be on meds for schizoaffective disorder, no current hallucinations or delusions. No diarrhea now
--- NOTE | 2019-06-23 19:25 | PRG ---
DATE OF SERVICE: 06/23/2019 REASON FOR CONSULTATION: Hematemesis, melena, and gastric ulceration. SUBJECTIVE: Today, the patient states that she is feeling much better with no further episodes of hematemesis nor melena. She was able to tolerate a clear liquid diet earlier today without difficulty, but given increased hunger later in the afternoon, had friends/family deliver her [employer] to eat later in the day. Currently, she denies any nausea, vomiting, fevers, chills, hematemesis, melena, dysphagia, or odynophagia. OBJECTIVE: VITAL SIGNS: Temperature 98.6, pulse 91, blood pressure 124/59, respiratory rate 20, saturating 98% on room air. GENERAL: The patient was lying in bed, in no acute distress. Alert and oriented x4. CARDIOVASCULAR: Regular rate and rhythm. RESPIRATORY: Clear to auscultation bilaterally. ABDOMEN: Normoactive bowel sounds. Soft and nondistended. Mild tenderness to palpation in the midepigastric region. EXTREMITIES: No cyanosis, clubbing, or edema. LABORATORY DATA: CBC with a white blood cell count of 16, hemoglobin 6.6, hematocrit 19.4, platelets 196. Chemistry with a sodium of 138, potassium 3.6, chloride 108, CO2 of 25, BUN 10, creatinine 0.73, glucose 93. IMAGING DATA: The patient underwent upper endoscopy on June 22, 2019, which showed 2 ulcerations located along the lesser curvature of the stomach measuring 1.3 and 1.2 cm in size. The small ulceration seemed to be more superficial without any evidence of high-risk stigmata bleeding; however, the larger ulceration did show protruding vessel and adherent clot, that was ultimately intervened upon with bipolar cauterization as well as the placement of 3 hemoclips to achieve hemostasis. ASSESSMENT AND PLAN: The patient is a 44-year-old female with past medical history of hypertension, hyperlipidemia, gastroesophageal reflux disease, and cocaine abuse, presenting with an acute gastric ulcer with hemorrhage. Acute gastric ulcer with hemorrhage: The patient initially presented with acute onset of diaphoresis, midepigastric/periumbilical abdominal pain, hematemesis and melena consistent with an upper gastrointestinal bleed. She subsequently underwent upper endoscopy on June 22, 2019, which showed the presence of 2 ulcerations along the lesser curvature of the stomach, one of which exhibiting high-risk stigmata of bleeding. This ulceration was ultimately intervened upon with bipolar cauterization and hemoclip x3 with good hemostasis at the end of the procedure. She did have a mild drop in her H and H over the next 24 hours, but no further episodes of hematemesis or melena making equilibration of her total body volume of blood more likely (also supported by a decrease in her CIP-wa-bpenmnrmrm ratio). Currently, doing well with no further evidence of gastrointestinal bleed while on a PPI drip. She has been able to tolerate the diet well with no problems and improvement of her abdominal pain at this time. RECOMMENDATIONS: 1. We will continue to trend her H and H and transfuse as necessary to maintain an H and H of 7/21. 2. Continue to monitor clinically for signs of active gastrointestinal bleeding. 3. Could discontinue the PPI drip and place the patient on pantoprazole 40 mg IV b.i.d. 4. We would avoid any NSAIDs indefinitely. 5. I counseled the patient strongly about further use of cocaine and its vasoconstrictive effects causing ulcerations within the stomach. 6. The patient will need an H. pylori stool antigen for evaluation of possible H. pylori infection. 7. We will continue to avoid any anticoagulation in light of recent GI bleed. 8. Advance diet as tolerated. We will continue to follow. Please call with any questions. Job ID: [id number]
[2019-06-23] MEDS: Pantoprazole 40 MG VIAL IVP SCH (21:49)
[2019-06-24 05:09] LABS: #Basophils 0.1 thou/uL (0.0-0.2); #Eosinphils 0.3 thou/uL (0.0-0.7); #Lymphocytes 2.7 thou/uL (1.20-3.40); #Monocytes 0.6 thou/uL (0.11-0.59); %Basophils 0.5 % (0.0-1.0); %Eosinophils 3.1 % (0.0-10.0); %Lymphocytes 25.2 % (21.0-51.0); %Monocytes 5.8 % (0.0-10.0); %Neutrophils 65.4 % (42.0-75.0); Hemoglobin 7.2 g/dL (12.0-16.0); Mean Corpuscular HGB CONC 33.9 g/dL (32.0-36.0); Mean Corpuscular Volume 97.4 fL (78.0-98.0); Mean Platelet Volume 8.5 fL (7.4-10.4); Platelet Count 193 thou/uL (130-400); RBC Distribution Width 14.6 % (11.5-14.5); Red Blood Cell (RBC) Count 2.18 mill/uL (4.20-5.40); White Blood Cell (WBC) Count 10.7 thou/uL (4.8-10.8)
[2019-06-24 05:29] LABS: Anion Gap 10 mmol/L (10-20); BUN (Urea Nitrogen) 4 mg/dL (7.0-18.7); Calc. Creatinine Clearance 185 mL/min (70-130); Calcium 7.8 mg/dL (7.8-10.44); Carbon Dioxide 24 mmol/L (22-29); Chloride 109 mmol/L (98-107); Estimated GFR-MDRD Greater than 90; Glucose 90 mg/dL (70-105); Potassium 3.9 mmol/L (3.5-5.1); Sodium 139 mmol/L (136-145)
[2019-06-24] MEDS: Amlodipine 10 MG TAB PO SCH (08:45)
[2019-06-24] MEDS: Pantoprazole 40 MG VIAL IVP SCH ×2 (08:46→20:16)
--- NOTE | 2019-06-24 15:06 | PDOC.HOSPP ---
- Subjective Encounter Date: 06/24/19 Encounter Time: 11:30 Subjective: Patient seen and examined for GI bleeding/seizure. No CP/SOB or seizure. No new complaints. No overnight events - Objective Vital Signs & Weight: Vital Signs (12 hours) Temp Pulse Resp BP BP Pulse Ox 06/24/19 11:43 99.2 F 76 17 124/59 L 97 06/24/19 08:45 85 128/62 06/24/19 08:42 98 06/24/19 07:30 98.6 F 85 16 128/62 98 06/24/19 03:32 98.6 F 96 18 120/55 L 99 Weight Weight 260 lb 9.6 oz I&O: 06/23/19 06/24/19 06/25/19 06:59 06:59 06:59 Intake Total 1070 Balance 1070 Result Diagrams: 06/24/19 15:15 06/24/19 04:53 Additional Labs: Accuchecks 06/24/19 06/24/19 06/23/19 12:04 06:06 23:50 POC Glucose 103 104 163 H 06/23/19 18:29 POC Glucose 135 H EKG Reviewed by me: Yes (Tele SR) Hospitalist ROS - Review of Systems Respiratory: denies: cough, dry, shortness of breath, hemoptysis, SOB with excertion, pleuritic pain, sputum, wheezing, other Cardiovascular: denies: chest pain, palpitations, orthopnea, paroxysmal noc. dyspnea, edema, light headedness, other - Medication Medications: Active Medications Generic Name Dose Route Start Last Admin Trade Name Freq PRN Reason Stop Dose Admin Amlodipine Besylate 10 mg 06/22/19 09:00 06/24/19 08:45 Norvasc PO 10 mg DAILY IGGY Administration Pantoprazole Sodium 40 mg 06/23/19 21:00 06/24/19 08:46 Protonix IVP 40 mg BID IGGY Administration Sodium Chloride 10 ml 06/23/19 09:00 06/24/19 08:46 Flush - Normal Saline IVF 10 ml Q12HR IGGY Administration - Exam General Appearance: NAD Neck: supple, symmetric, no JVD Heart: RRR, no gallops, no rubs, normal peripheral pulses Respiratory: no wheezes, no rales, no ronchi, normal chest expansion Gastrointestinal: soft, non-tender, non-distended, normal bowel sounds Extremities: no cyanosis, no clubbing Neurological: cranial nerve grossly intact, normal sensation to touch, no new deficit Psychiatric: normal affect, A&O x 3 Hosp A/P - Plan DVT proph w/SCDs Toxic Metabolic Encephalopathy/Seizure prob due to Cocaine abuse GI bleeding due to PUD Acute blood loss anemia Morbid obesity BMI 42.1 HTN HLD GERD Abd wall hernia Vit B12/Folic acid def PLAN: Monitor HH Transfuse if Hb <7 Cont PPI Cont Amlodipine Seizure precautions Counselled on Cocaine cessation F/U with Neuro as outpt No NSAIDs
[2019-06-24 15:46] LABS: Hemoglobin 7.4 g/dL (12.0-16.0)
[2019-06-24] MEDS: Folic Acid 1 MG TAB PO SCH (20:15)
[2019-06-24] MEDS ORDERED: Folic Acid 1 MG TAB PO SCH (21:00)
[2019-06-24] MEDS ORDERED: Cyanocobalamin (Vitamin B-12) 1,000 MCG TAB PO SCH (21:00)
--- NOTE | 2019-06-24 21:05 | PRG ---
DATE OF SERVICE: 06/24/2019 REASON FOR CONSULTATION: Hematemesis, melena, and gastric ulceration. SUBJECTIVE: Later in the day today, the patient did experience some increased nausea, but it was felt to be more due to hunger pains rather than actual nausea. She has not exhibited any further episodes of hematemesis nor has she had any repeat melena since intervention on upper endoscopy. Currently, she denies any vomiting, fevers, chills, hematemesis, melena, dysphagia, or odynophagia. OBJECTIVE: VITAL SIGNS: Temperature 98.8, pulse 89, blood pressure 125/64, respiratory rate 16, saturating 100% on room air. GENERAL: The patient was sitting at bedside, in no acute distress. Alert and oriented x4. CARDIOVASCULAR: Regular rate and rhythm. RESPIRATORY: Clear to auscultation bilaterally. ABDOMEN: Normoactive bowel sounds. Soft, nondistended. No tenderness to palpation in all abdominal quadrants. EXTREMITIES: No cyanosis, clubbing, or edema. LABORATORY DATA: Hemoglobin 7.4, hematocrit 22.5. Chemistry with a sodium of 139, potassium 3.9, chloride 109, CO2 of 24, BUN 4, creatinine 0.71, glucose 90. IMAGING DATA: No current GI imaging is available for review. ASSESSMENT AND PLAN: The patient is a 44-year-old female with past medical history of hypertension, hyperlipidemia, gastroesophageal reflux disease, and cocaine abuse, presenting with acute gastric ulcer with hemorrhage. 1. Acute gastric ulcer with hemorrhage. The patient initially presented with hematemesis, melena, and decreased H and H consistent with an upper GI bleed. She subsequently underwent upper endoscopy on June 22, 2019, which showed the presence of 2 ulcerations along the lesser curvature of the stomach, that were ultimately intervened upon with bipolar cauterization and hemoclip x3. Since intervention, she has received 1 unit of PRBCs, but had appropriate response to the infusion of blood and has had no further decrease in her H and H. Currently, doing well while on PPI b.i.d. and has been able to tolerate the diet well with no increase in her abdominal pain. Recommendations;. a. Would continue to trend her H and H and transfuse as necessary to maintain an H and H of 7/21. b. Continue to monitor clinically for signs of active GI bleeding. c. Would continue the patient on pantoprazole 40 mg b.i.d., but can transfer to oral formulation. d. Would avoid any NSAIDs indefinitely. e. Advance diet as tolerated. f. The patient will need a repeat upper endoscopy in 8 to 12 weeks for re-evaluation of the gastric ulceration and confirmation of healing. g. Would have the patient follow up in the GI Clinic in 3 to 4 weeks. If the patient's H and H are stable tomorrow morning, she could be potentially discharged to home with followup in the outpatient GI Clinic. We will sign off at this time. Please call with any questions. Job ID: [id number]
[2019-06-25 05:06] LABS: #Eosinphils 0.3 thou/uL (0.0-0.7); #Lymphocytes 2.6 thou/uL (1.20-3.40); #Monocytes 0.6 thou/uL (0.11-0.59); #Neutrophils 6.9 thou/uL (1.40-6.50); %Basophils 0.2 % (0.0-1.0); %Eosinophils 2.7 % (0.0-10.0); %Lymphocytes 25.3 % (21.0-51.0); %Monocytes 5.4 % (0.0-10.0); %Neutrophils 66.3 % (42.0-75.0); Hemoglobin 7.1 g/dL (12.0-16.0); Mean Corpuscular HGB CONC 33.2 g/dL (32.0-36.0); Mean Corpuscular Hemoglobin 32.7 pg (27.0-31.0); Mean Corpuscular Volume 98.6 fL (78.0-98.0); Mean Platelet Volume 8.4 fL (7.4-10.4); Platelet Count 244 thou/uL (130-400); RBC Distribution Width 15.4 % (11.5-14.5); Red Blood Cell (RBC) Count 2.15 mill/uL (4.20-5.40); White Blood Cell (WBC) Count 10.3 thou/uL (4.8-10.8)
[2019-06-25 05:26] LABS: Anion Gap 8 mmol/L (10-20); BUN (Urea Nitrogen) 5 mg/dL (7.0-18.7); Calc. Creatinine Clearance 162 mL/min (70-130); Calcium 7.9 mg/dL (7.8-10.44); Carbon Dioxide 27 mmol/L (22-29); Chloride 107 mmol/L (98-107); Estimated GFR-MDRD Greater than 90; Glucose 125 mg/dL (70-105); Potassium 3.4 mmol/L (3.5-5.1); Sodium 139 mmol/L (136-145)
[2019-06-25 08:17] VITALS: TEMP 98.7
[2019-06-25] MEDS: Pantoprazole 40 MG VIAL IVP SCH (08:49)
[2019-06-25] MEDS: Amlodipine 10 MG TAB PO SCH (08:49)
[2019-06-25] MEDS: Folic Acid 1 MG TAB PO SCH (08:49)
[2019-06-25] MEDS ORDERED: Multivit, Therapeutic 1 TAB PO SCH (09:00)
[2019-06-25 12:35] VITALS: BP 132/71
--- NOTE | 2019-06-25 15:22 | DIS ---
DATE OF ADMISSION: 06/21/2019 DATE OF DISCHARGE: 06/25/2019 DISPOSITION: Home. FOLLOWUP: 1. Follow up with [facility] in 1 week. 2. Follow up with Neurology, Dr. Larsen in 2 to 3 weeks. 3. Follow up with Gastroenterology, Dr. Vergara in 1 week. DISCHARGE INSTRUCTIONS: 1. Repeat CBC after 1 week is recommended. Primary care physician advised to follow. 2. No driving until cleared by neurologist. ALLERGIES: NO KNOWN DRUG ALLERGIES. DISCHARGE MEDICATIONS: 1. Amlodipine 5 mg b.i.d. 2. Vitamin B12 1000 mcg daily. 3. Ferrous sulfate 325 mg b.i.d. 4. Folic acid 1 mg b.i.d. 5. Multivitamin one tablet daily. 6. Protonix 40 mg b.i.d.. SIGNIFICANT LABS: 1. Lowest hemoglobin was 6.6. 2. Potassium of 3.2. 3. Iron of 250, TIBC 264, ferritin 17.4. 4. Vitamin B12 174, folic acid 6.8. 5. Urinalysis was negative for wbc and bacteria. 6. Urine drug screen was positive for cocaine. 7. CT scan of the abdomen and pelvis showed an anterior abdominal wall hernia with transverse colon herniated through the abdominal wall defect into the hernial sac and also showed right ovarian cyst. 8. CT scan of the brain was negative. 9. Right lower extremity Doppler was negative for DVT. Chest x-ray was negative for infiltrate. 10. Echocardiogram showed left ventricular ejection fraction of 65% to 70%with [id number] concentric left ventricular hypertrophy. INPATIENT PROCEDURES: On June 22, 2019, the patient underwent EGD that showed 1.3 cm ulcer in the proximal lesser curvature of the body of the stomach. The ulcer had protruding vessel and adherent clot. The ulcer was injected with epinephrine. The second 1.2 cm clean white-based ulcer was also nearby lateral to this ulcer. BRIEF HOSPITAL COURSE: The patient is a 44-year-old female, who presented to the emergency room with abdominal discomfort along with one episode of vomiting blood. The blood pressure by EMS was 78/52. Please refer to the history and physical for further details. The patient was admitted to the Stroke Unit with a diagnosis of upper GI bleeding. She also had an episode of seizure. Her mentation gradually improved. H and H were closely monitored. She received 2 units of PRBC. Urine drug screen was positive for cocaine. Proton-pump inhibitor has been changed to oral. She underwent EGD as discussed above. She has been cleared by consultants for discharge. The patient was advised to follow up with Neurology as outpatient for seizure and EEG has been done. Report is pending at this time. FINAL DIAGNOSES: 1. Toxic metabolic encephalopathy/seizure, suspected secondary to cocaine abuse. 2. Upper gastrointestinal bleeding secondary to peptic ulcer disease, status post esophagogastroduodenoscopy. 3. Acute blood loss anemia status post 2 units of PRBC. 4. Morbid obesity with a BMI of 42.1. 5. Hypertension. 6. Hyperlipidemia. 7. Gastroesophageal reflux disease. 8. Abdominal wall hernia. 9. Vitamin B12 deficiency. 10. Folic acid deficiency. 11. Lifestyle modification was emphasized. Time coordinating the discharge of this patient was 34 minutes. The patient was extensively counseled on lifestyle modification. Job ID: [id number]
--- NOTE | 2019-06-26 09:50 | EKG ---
Test Reason : Blood Pressure : / mmHG Vent. Rate : 103 BPM Atrial Rate : 103 BPM P-R Int : 122 ms QRS Dur : 084 ms QT Int : 360 ms P-R-T Axes : 070 058 050 degrees QTc Int : 471 ms Sinus tachycardia Minimal voltage criteria for LVH, may be normal variant ST abnormality, possible digitalis effect Abnormal ECG Confirmed by MICHELLE GREER ([id number]), commercial production editor JANELLE HO ([id number]) on 06/26/2019 9:50:12 AM Referred By: Confirmed By:MICHELLE GREER
== END 2019-06-25 11:36 | disposition home or self-care (01) | DRG 377 ==
LOC: ERS 15:23 → 2SE 17:15 → ERS 18:35
PROVIDERS: ADMIT Internal Medicine; ATTEND Internal Medicine
PROC: 30233N1 Transfusion of Nonautologous Red Blood Cells into Peripheral Vein, Percutaneous Approach (ICD-10-PCS; 2019-06-21)
PROC: 0W3P8ZZ Control Bleeding in Gastrointestinal Tract, Via Natural or Artificial Opening Endoscopic (ICD-10-PCS; principal; 2019-06-22)
DX: K25.0 Acute gastric ulcer with hemorrhage (principal); G92 Toxic encephalopathy; F20.0 Paranoid schizophrenia; D62 Acute posthemorrhagic anemia; N17.9 Acute kidney failure, unspecified; Z68.41 Body mass index [BMI] 40.0-44.9, adult; T40.5X1A Poisoning by cocaine, accidental (unintentional), initial encounter; K21.9 Gastro-esophageal reflux disease without esophagitis; E78.5 Hyperlipidemia, unspecified; E78.00 Pure hypercholesterolemia, unspecified; I10 Essential (primary) hypertension; R56.9 Unspecified convulsions; E66.01 Morbid (severe) obesity due to excess calories; K46.9 Unspecified abdominal hernia without obstruction or gangrene; E53.8 Deficiency of other specified B group vitamins; K43.9 Ventral hernia without obstruction or gangrene; F14.10 Cocaine abuse, uncomplicated; F31.9 Bipolar disorder, unspecified; Z79.82 Long term (current) use of aspirin; Z79.899 Other long term (current) drug therapy
CPT/HCPCS: 36415; 36416; 36430; 70450; 71045; 74177; 80048; 80053; 80306; 81003; 81015; 82607; 82728; 82746; 83036; 83540; 83550; 83605; 83690; 84146; 84703; 85014; 85018; 85025; 85610; 85730; 86850; 86900; 86901; 93005; 93306; 94760; 95816; 95819; 96361; 96374; 96375; C9113; J0171; J2405; J2704; J3490; P9016; Q2009; Q9967

== ENCOUNTER 2019-08-03 10:38 | Emergency (ER) | payer SELFPAY ==
[2019-08-03] MEDS ORDERED: Lorazepam 2 MG/ML VIAL ONE (10:43)
[2019-08-03] MEDS ORDERED: Fentanyl 100 MCG/2 ML VIAL ONE (10:43)
[2019-08-03 11:04] LABS: #Eosinphils 0.2 thou/uL (0.0-0.7); #Lymphocytes 1.9 thou/uL (1.20-3.40); #Monocytes 0.7 thou/uL (0.11-0.59); #Neutrophils 5.5 thou/uL (1.40-6.50); %Basophils 0.2 % (0.0-1.0); %Eosinophils 2.2 % (0.0-10.0); %Monocytes 8.1 % (0.0-10.0); %Neutrophils 66.5 % (42.0-75.0); Hemoglobin 7.6 g/dL (12.0-16.0); Mean Corpuscular HGB CONC 31.1 g/dL (32.0-36.0); Mean Corpuscular Hemoglobin 25.5 pg (27.0-31.0); Mean Corpuscular Volume 81.8 fL (78.0-98.0); Mean Platelet Volume 8.3 fL (7.4-10.4); Platelet Count 518 thou/uL (130-400); RBC Distribution Width 22.9 % (11.5-14.5); Red Blood Cell (RBC) Count 2.98 mill/uL (4.20-5.40); White Blood Cell (WBC) Count 8.2 thou/uL (4.8-10.8)
[2019-08-03 11:13] LABS: BHCG - Serum Negative (NEGATIVE); Pregs Control Background? CLEAR/WHITE (CLR/WHITE); Pregs Control Bar Appear? YES (CONTROL BAR)
[2019-08-03 11:16] LABS: ALT (SGPT) 11 U/L (8-55); AST (SGOT) 20 U/L (5-34); Albumin 3.5 g/dL (3.5-5.0); Alkaline Phosphatase 95 U/L (40-110); Anion Gap 11 mmol/L (10-20); BUN (Urea Nitrogen) 8 mg/dL (7.0-18.7); Bilirubin, Total 0.2 mg/dL (0.2-1.2); Calc. Creatinine Clearance 0 mL/min (70-130); Calcium 8.4 mg/dL (7.8-10.44); Carbon Dioxide 25 mmol/L (22-29); Chloride 106 mmol/L (98-107); Estimated GFR-MDRD Greater than 90; Globulin 3.4 g/dL (2.4-3.5); Glucose 107 mg/dL (70-105); Lipase 82 U/L (8-78); Potassium 3.5 mmol/L (3.5-5.1); Protein, Total 6.9 g/dL (6.0-8.3); Sodium 138 mmol/L (136-145)
[2019-08-03 11:23] LABS: Anisocytosis MODERATE=16-30 cells (100X) (0-5/hpf); Hypochromia SLIGHT = 6-15 cells (100X) (0-5/hpf); Large Platelets SLIGHT; MDiff Complete? YES; Platelet Morphology Comment Appears Increased; Polychromasia MODERATE = 3-4 cells (100X) (0-2/hpf)
== END 2019-08-03 12:30 | disposition home or self-care (01) ==
LOC: ERS 10:38
DX: G89.18 Other acute postprocedural pain (principal); R10.9 Unspecified abdominal pain; G89.29 Other chronic pain; D64.9 Anemia, unspecified; K43.9 Ventral hernia without obstruction or gangrene; K21.9 Gastro-esophageal reflux disease without esophagitis; E78.5 Hyperlipidemia, unspecified; E78.00 Pure hypercholesterolemia, unspecified; I10 Essential (primary) hypertension; F20.0 Paranoid schizophrenia; F90.9 Attention-deficit hyperactivity disorder, unspecified type; F31.9 Bipolar disorder, unspecified; Z79.899 Other long term (current) drug therapy
CPT/HCPCS: 80053; 83690; 84703; 85025; 96374; J2060; J3010

== ENCOUNTER 2019-12-13 14:00 | Emergency (ER) | payer OTHER, SELFPAY ==
[2019-12-13 16:01] LABS: Bilirubin Negative (Negative); Blood, Urine Negative (Negative); Clarity Clear (Clear); Glucose, Urine (Dipstick) Normal (Negative); Ketone, Urine Negative (Negative); Leukocyte Negative Leu/uL (Negative); Nitrite Negative (Negative); Protein, Urine (Dipstick) Negative (Neg-Trace); Specific Gravity, Urine 1.021 (1.002-1.036); Urobilinogen Normal mg/dL (Less than 2)
[2019-12-13 16:02] LABS: Pregnancy Test - Urine (BHCG) Negative (Negative); Pregu Control Background? CLEAR/WHITE (CLR/WHITE); Pregu Control Bar Appear? YES (CONTROL BAR); Specific Gravity 1.021 (1.002-1.036)
[2019-12-14 22:07] LABS: Chlamydia by PCR Not Detected (NotDetected); GC by PCR Not Detected (NotDetected)
== END 2019-12-13 16:20 | disposition home or self-care (01) ==
LOC: ERS 14:00
DX: T19.2XXA Foreign body in vulva and vagina, initial encounter (principal); N73.9 Female pelvic inflammatory disease, unspecified; K21.9 Gastro-esophageal reflux disease without esophagitis; E78.5 Hyperlipidemia, unspecified; E78.00 Pure hypercholesterolemia, unspecified; I10 Essential (primary) hypertension; F31.9 Bipolar disorder, unspecified; F90.9 Attention-deficit hyperactivity disorder, unspecified type; F60.3 Borderline personality disorder; F20.9 Schizophrenia, unspecified; Z79.899 Other long term (current) drug therapy
CPT/HCPCS: 81003; 81025; 87480; 87491; 87510; 87591; 87660; 99283

== ENCOUNTER 2020-04-20 04:42 | Emergency (ER) | payer OTHER, SELFPAY ==
[2020-04-20] MEDS ORDERED: Pantoprazole 40 MG VIAL ONE (05:23)
[2020-04-20 05:58] LABS: #Basophils 0.1 thou/uL (0.0-0.2); #Eosinphils 0.1 thou/uL (0.0-0.7); #Lymphocytes 1.7 thou/uL (1.20-3.40); #Monocytes 0.7 thou/uL (0.11-0.59); #Neutrophils 6.3 thou/uL (1.40-6.50); %Basophils 0.6 % (0.0-1.0); %Eosinophils 1.1 % (0.0-10.0); %Lymphocytes 18.9 % (21.0-51.0); %Monocytes 7.9 % (0.0-10.0); %Neutrophils 71.5 % (42.0-75.0); Mean Corpuscular HGB CONC 33.3 g/dL (32.0-36.0); Mean Corpuscular Hemoglobin 33.3 pg (27.0-31.0); Mean Corpuscular Volume 99.9 fL (78.0-98.0); Mean Platelet Volume 8.7 fL (7.4-10.4); Platelet Count 230 thou/uL (130-400); Red Blood Cell (RBC) Count 3.29 mill/uL (4.20-5.40); White Blood Cell (WBC) Count 8.8 thou/uL (4.8-10.8)
[2020-04-20 06:13] LABS: ALT (SGPT) 10 U/L (8-55); AST (SGOT) 16 U/L (5-34); Albumin 3.2 g/dL (3.5-5.0); Alkaline Phosphatase 69 U/L (40-110); Anion Gap 13 mmol/L (10-20); BUN (Urea Nitrogen) 36 mg/dL (7.0-18.7); Bilirubin, Total 0.4 mg/dL (0.2-1.2); Calc. Creatinine Clearance 0 mL/min (70-130); Calcium 8.2 mg/dL (7.8-10.44); Carbon Dioxide 24 mmol/L (22-29); Chloride 103 mmol/L (98-107); Globulin 3.2 g/dL (2.4-3.5); Glucose 103 mg/dL (70-105); Lipase 44 U/L (8-78); Potassium 4.2 mmol/L (3.5-5.1); Protein, Total 6.4 g/dL (6.0-8.3); Sodium 136 mmol/L (136-145)
--- NOTE | 2020-04-22 13:52 | EKG ---
Test Reason : Blood Pressure : / mmHG Vent. Rate : 074 BPM Atrial Rate : 074 BPM P-R Int : 144 ms QRS Dur : 086 ms QT Int : 424 ms P-R-T Axes : 059 053 037 degrees QTc Int : 470 ms Normal sinus rhythm Normal ECG Confirmed by GORGE OLIVER ([id number]), associate entertainment editor JANELLE HO ([id number]) on 04/22/2020 1:51:55 PM Referred By: Confirmed By:GORGE OLIVER
== END 2020-04-20 07:06 | disposition home or self-care (01) ==
LOC: ERS 04:42
DX: K27.9 Peptic ulcer, site unspecified, unspecified as acute or chronic, without hemorrhage or perforation (principal); K43.9 Ventral hernia without obstruction or gangrene; K21.9 Gastro-esophageal reflux disease without esophagitis; E78.5 Hyperlipidemia, unspecified; I10 Essential (primary) hypertension; Z79.899 Other long term (current) drug therapy
CPT/HCPCS: 36415; 80053; 83690; 84484; 85025; 93005; C9113